=== PATIENT | female | born 1990 | race Caucasian/White ===

== ENCOUNTER → 2016-11-27 | Outpatient (CLI) | payer BC ==
--- NOTE | 2016-12-01 10:53 | US ---
EXAM DATE: 11/27/16 PATIENT'S AGE: 26 Patient: IBIS ROGERS Facility: [place], [place] Site . Site : 1990 Study: US OB Pelvis [id number]/9/2017 2:58:56 PM Ordering Physician: Ed Foreman Final Report: INDICATION: survey. TECHNIQUE: Conventional transabdominal two-dimensional grayscale ultrasound examination. COMPARISON: None. FINDINGS: There is a living fetus with gestational age of 20 weeks 1 day by LMP and 20 weeks 3 days by today`s measurements. EDC based on LMP is 04/15/2017. BPD: 4.8 cm, 20 weeks 3 days Head circumference: 17.6 cm, 20 weeks 1 day Abdominal circumference: 15.9 cm, 21 weeks 1 day Femur length: 3.2 cm, 20 weeks The weight is estimated at 357 grams, the 66th percentile. The heart rate is measured at 150 beats per minute and the rhythm appears regular. The head and spine are grossly intact. No gross facial abnormality is evident. The upper lip is not documented. Four cardiac chambers are demonstrated. The heart and stomach appear to be on the same side. The diaphragm is intact. Two kidneys and a bladder are demonstrated. The cord insertion is normal and 3 cord vessels are noted. Four extremities are demonstrated. The amniotic fluid volume is within normal limits. The placenta is anterior with no evidence of previa. The cervical length is grossly normal. IMPRESSION: 1. Living fetus with gestational age of 20 weeks 1 day by LMP and 20 weeks 3 days by today`s measurements. EDC based on LMP is 04/15/2017. 2. No anomaly evident. upper lip not documented. Dictated by Timothy Stanley MD @ Dec 01 2016 8:50AM (Electronic Signature) Report Signed by Proxy and Original Signed Document filed in the Medical Record. [facility]ITAL[facility]eejay
== END ==
LOC: MW.US 13:47
PROVIDERS: ATTEND Advanced Practice Midwife
DX: Z34.90 Encounter for supervision of normal pregnancy, unspecified, unspecified trimester (principal)
CPT/HCPCS: 76805; 76805-26

== ENCOUNTER → 2016-12-03 | Outpatient (CLI) | payer BC ==
[2016-12-03 17:06] LABS: CHLORIDE,CL 106 mmol/L (98-110); SODIUM,NA 139 mmol/L (136-146)
== END ==
LOC: MW.CHOBGYN 16:21
PROVIDERS: ATTEND Advanced Practice Midwife
DX: O13.9 Gestational [pregnancy-induced] hypertension without significant proteinuria, unspecified trimester (principal)
CPT/HCPCS: 36415; 80053; 82570; 84156; 84550; 85025

== ENCOUNTER → 2016-12-05 | Outpatient (CLI) | payer BC ==
[2016-12-05 11:42] LABS: CHLORIDE,CL 107 mmol/L (98-110); SODIUM,NA 138 mmol/L (136-146)
== END ==
LOC: MW.CHOBGYN 10:40
PROVIDERS: ATTEND Advanced Practice Midwife
DX: O13.9 Gestational [pregnancy-induced] hypertension without significant proteinuria, unspecified trimester (principal)
CPT/HCPCS: 36415; 80053; 80074; 82570; 84156; 84550; 85025

== ENCOUNTER → 2016-12-08 | Outpatient (CLI) | payer BC ==
[2016-12-08 12:09] LABS: CHLORIDE,CL 108 mmol/L (98-110); SODIUM,NA 138 mmol/L (136-146)
== END | disposition home or self-care (01) ==
LOC: MW.CHOBGYN 11:20
PROVIDERS: ATTEND Obstetrics & Gynecology
DX: O13.9 Gestational [pregnancy-induced] hypertension without significant proteinuria, unspecified trimester (principal)
CPT/HCPCS: 36415; 80053

== ENCOUNTER → 2016-12-09 | Outpatient (CLI) | payer BC | LOC: MW.CHOBGYN 14:13 | PROVIDERS: ATTEND Obstetrics & Gynecology | DX: O13.9 Gestational [pregnancy-induced] hypertension without significant proteinuria, unspecified trimester (principal) | CPT/HCPCS: 82570; 84156 ==

== ENCOUNTER → 2016-12-12 | Outpatient (CLI) | payer BC | LOC: MW.CHOBGYN 11:19 | PROVIDERS: ATTEND Obstetrics & Gynecology | DX: O13.9 Gestational [pregnancy-induced] hypertension without significant proteinuria, unspecified trimester (principal) | CPT/HCPCS: 36415; 80076; 85049 ==

== ENCOUNTER → 2017-01-01 | Outpatient (CLI) | payer BC ==
--- NOTE | 2017-01-01 15:38 | US ---
EXAMINATION: Transabdominal obstetric ultrasound HISTORY: COMPARISON: 11/27/2016 TECHNIQUE: Grayscale, color Doppler, and spectral Doppler images obtained transabdominally. FINDINGS: There is a single live intrauterine in a cephalic position. The heart rate is 13 5 bpm. The placenta is anterior. Amniotic fluid level is normal. The biparietal diameter measures 6. 3 cm, the head circumference measures 22.8 cm, the abdominal circumference measures 21.1 cm, and the femoral length measures 4.6 cm. This gives an estimated gestational age at 25 weeks and 2 days and estimated date of delivery at 04/14/2017. Estimated weight is 803 g. Overall the fetus is withi n the 50th percentile. IMPRESSION: Single live intrauterine in a cephalic position.
== END ==
LOC: MW.US 12:52
PROVIDERS: ATTEND Advanced Practice Midwife
DX: O13.9 Gestational [pregnancy-induced] hypertension without significant proteinuria, unspecified trimester (principal)
CPT/HCPCS: 76815-26; 76816

== ENCOUNTER → 2017-01-06 | Outpatient (CLI) | payer BC | LOC: MW.CHOBGYN 08:55 | PROVIDERS: ATTEND Obstetrics & Gynecology | DX: Z34.90 Encounter for supervision of normal pregnancy, unspecified, unspecified trimester (principal) | CPT/HCPCS: 36415; 81003; 82950; 85027 ==

== ENCOUNTER → 2017-01-09 | Outpatient (CLI) | payer BC | LOC: MW.CHOBGYN 09:18 | PROVIDERS: ATTEND Obstetrics & Gynecology | DX: O99.810 Abnormal glucose complicating pregnancy (principal) | CPT/HCPCS: 36415; 82951 ==